=== PATIENT | female | born 1955 | race Caucasian/White ===

== ENCOUNTER → 2018-01-05 12:06 | Outpatient (CLI) | payer OTHER, SELFPAY ==
--- NOTE | 2018-01-05 | DI.MG.S_ITS ---
BILATERAL DIGITAL SCREENING MAMMOGRAM 3D/2D WITH CAD: 01/05/2018 CLINICAL: Routine screening. Comparison is made to exams dated: 09/01/2007 [facility], 07/19/2013 mammogram, and 04/06/2007 mammogram - [facility]. The tissue of both breasts is heterogeneously dense. This may lower the sensitivity of mammography. Current study was also evaluated with a Computer Aided Detection (CAD) system. No significant masses, calcifications, or other findings are seen in either breast. There has been no significant interval change. IMPRESSION: NEGATIVE There is no mammographic evidence of malignancy. A 1 year screening mammogram is recommended. This exam was interpreted at Station ID: [id number]. NOTE: For mammograms, a report in lay terms will be sent to the patient. Approximately 15% of breast malignancies will not be visualized mammographically. In the management of a palpable breast mass, a negative mammogram must not discourage biopsy of a clinically suspicious lesion. Electronically Signed By: Doni hansen/christo:01/05/2018 13:33:55 letter sent: Normal Exam ACR BI-RADS Category 1: Negative [id number]
== END ==
PROVIDERS: Family Provider Family Medicine; PCP Family Medicine; Visit Provider Family Medicine
DX: Z12.31 Encounter for screening mammogram for malignant neoplasm of breast (principal)
CPT/HCPCS: 77063; 77067

== ENCOUNTER 2018-08-29 10:33 | Day surgery (SDC) | payer OTHER, SELFPAY ==
[2018-08-22 13:19] VITALS: BMI 29.5
[2018-08-29] VITALS (9 sets, daily range): BP systolic 124–158; BP diastolic 60–83; PULSE 66–89; RESP 12–25; TEMP 36.2–36.4; O2SAT 94–100; BMI 30.5
[2018-08-29] MEDS: LACTATED RINGERS 1,000 ML 42 ML IV ×2 (11:15→14:12)
--- NOTE | 2018-08-29 12:11 | PM.PREOP ---
Pre-operative Note Interval Note History & Physical reviewed/Exam performed by Physician: Yes Changes to H&P: No
[2018-08-29] MEDS: MIDAZOLAM 2 MG/2 ML VIAL IV (12:47)
[2018-08-29] MEDS: fentaNYL 100 MCG/2 ML INJ 50 MCG IV ×2 (12:47→12:52)
[2018-08-29] MEDS: CEFAZOLIN 2 GM/100 ML FROZ.PIGGY IV (13:07)
--- NOTE | 2018-08-29 13:12 | SUR.PREOP ---
Block start time [1247] . Monitoring initiated and maintained throughout procedure. Oxygen and medications given per anesthesiologist instructions. Patient remained stable throughout procedure, no adverse reactions noted. Block end time [1300]. PT TALKING TO AT BEDSIDE AND HEALTHCARE STAFF DURING PROCEDURE. PT TAKEN DIRECTLY INTO THE OR AFTER COMPLETION OF THE BLOCK IN STABLE CONDITION.
--- NOTE | 2018-08-29 13:51 | SUR.OPER ---
Lateral on padded OR bed with burris bag positioner, head on pillow, gel axillary roll in place, bottom leg bent with gel pad under knee to foot, upper leg straight and supported with pillows. Operative arm secured in shoulder positioning suspension device. non-operative arm secured on padded arm board. Safety belt at hip, tape over blanket securing lower legs.
[2018-08-29] MEDS: SODIUM CHLORIDE IRRIG SOLUTION 3,000 ML, EPINEPHrine 1 MG IRR (14:03)
[2018-08-29] MEDS: BUPIVACAINE 0.5% W/ EPI (PF) VIAL 30 ML INJ (14:24)
--- NOTE | 2018-08-29 14:38 | P.OP_ITS ---
Operative Date/Time/Diagnoses Date of procedure: 08/29/18 Time of procedure: 14:20 Pre-op diagnosis: Left shoulder rotator cuff tear Post-op diagnosis: same Procedure & Clinicians Procedure: 1. Left shoulder arthroscopic rotator cuff repair 2. Left shoulder arthroscopic subacromial decompression Same procedure as scheduled: Yes Indications: The patient is a 62-year-old woman who has had significant left shoulder pain that has not responded to attempts at nonoperative management. MRI has revealed a full-thickness rotator cuff tear and she has agreed to surgery after discussion of the risks benefits and alternatives. Risks discussed included but were not limited to: Failure to improve, stiffness, infection, nerve damage, deep venous thrombosis, pulmonary embolism, stroke, myocardial infarction, permanent paralysis and . Surgeon: Raymond Barcenas [employer]: Briseida Mccray Click Yes if Unassisted: No Anesthesia Type: General, Peripheral nerve block and Local Operative Notes Findings: 1. Normal glenohumeral cartilage 2. Minimal degenerative fraying of the glenoid labrum 3. Normal glenohumeral ligaments 4. Normal subscapularis 5. Normal biceps with no SLAP lesion 6. Full-thickness minimally retracted 1 cm tear of the supraspinatus tendon just posterior to the biceps groove 7. Intact infraspinatus 8. Normal axillary pouch 9. Bursal rotator cuff notable for the full-thickness rotator cuff tear described above 10. Type 2 acromion with impingement lesion 11. Acromioclavicular joint not visualized due to lack of preoperative symptoms 12. Exam under anesthesia notable for no evidence for significant loss of motion or pathologic laxity. Closure Type: primary Specimen(s): none sent Implants & Drains: One Mitek Healix Advance BR 5.5 mm triple threaded anchor Applied: implant(s) Estimated Blood Loss (mL): 10 Blood products transfused: none Procedure in detail: Patient was seen in the preoperative area where she identified her left shoulder as the operative site and this was marked with my initials. She received appropriate antibiotics with a 1st generation cephalosporin and underwent an interscalene block. She was then taken to the operating room and placed on the operating room table in a supine position where she underwent the induction of a general anesthetic. A time clock mechanic-out was performed. Following the onset a satisfactory general anesthesia her shoulder was examined. She was then repositioned in the right lateral decubitus position with an axillary roll and padding for all pressure points. She was stabilized in this position using the burris bag. The left arm was prepared from the fingertips to the base the neck with ChloraPrep and draped through sterile drapes. The arm was placed in 10 lb of balanced skin suspension. Subcutaneous landmarks were outlined on the skin with a marking pen and portal sites selected. The posterior portal was created for the arthroscope and diagnostic arthroscopy in the glenohumeral joint proceeded with the result given above. The arthroscope was then withdrawn and placed in the subacromial bursa through the posterior portal. A lateral portal and an anterior portal were created for instrumentation. The rotator cuff tear was identified and nonviable tissue removed with shaver. The greater tuberosity was prepared to bleeding bone with the bur. The type 2 acromion was converted to a type 1 acromion using the cutting block technique. An accessory superolateral portal was created for anchor placement and a single anchor was placed in the greater tuberosity. The sutures from this anchor were then placed across the rotator cuff tear in simple suture fashion and tied to complete the repair. The integrity of the repair was verified from both the posterior portal in the lateral portal. At this point all arthroscopic equipment was removed. The wounds were closed with 4 0 Monocryl and Steri-Strips. The subcutaneous tissues and the subacromial space were each injected with 10 mL 0.5% Marcaine for postoperative pain control. Dressings sterile 4x4s, an ABD and an adhesive dressing were applied. The patient's arm was placed in the sling and she was transported to the recovery room in good condition having tolerated the procedure well. Complications: none Condition: stable Disposition: PACU Plan for aftercare: The patient will be maintained on a standard small size rotator cuff tear protocol with 6 weeks of passive range of motion while wearing a sling. She will then be advanced with physical therapy. She will be discharged this afternoon.
== END 2018-08-29 16:25 | disposition home or self-care (01) ==
PROVIDERS: Family Provider Family Medicine; PCP Family Medicine; Visit Provider Orthopaedic Surgery
PROC: (CPT 29827; principal; 2018-08-29 12:45)
DX: M75.122 Complete rotator cuff tear or rupture of left shoulder, not specified as traumatic (principal); G89.18 Other acute postprocedural pain; M25.812 Other specified joint disorders, left shoulder; I10 Essential (primary) hypertension; E78.5 Hyperlipidemia, unspecified; M19.90 Unspecified osteoarthritis, unspecified site; Z87.891 Personal history of nicotine dependence
CPT/HCPCS: 29827; 29826; 64415; J0171; J0690; J1100; J2250; J2405; J2704; J3010

== ENCOUNTER → 2021-06-10 11:56 | Outpatient (CLI) | payer OTHER, SELFPAY | PROVIDERS: PCP Physician Assistant; Visit Provider Physician Assistant Medical | DX: N20.0 Calculus of kidney (principal) | CPT/HCPCS: 87086 ==

== ENCOUNTER → 2021-12-17 10:19 | Outpatient (CLI) | payer OTHER, SELFPAY | PROVIDERS: Family Provider Family Medicine; PCP Family Medicine; Visit Provider Physician Assistant Medical | DX: R31.9 Hematuria, unspecified (principal) | CPT/HCPCS: 87086 ==

== ENCOUNTER → 2021-12-24 11:28 | Outpatient (CLI) | payer OTHER, SELFPAY ==
[2021-12-24 18:35] LABS: Add Manual Diff / Slide Review NO; Basophils Absolute Auto 100 /uL (0-100); Basophils Percent Auto 0.7 % (0-2); Eosinophils Absolute Auto 200 /uL (0-450); Eosinophils Percent Auto 1.6 % (2-4); Hematocrit 39.1 % (36-46); Lymphocytes Absolute Auto 3100 /uL (1100-4500); Lymphocytes Percent Auto 32.9 % (25-40); Mean Corpuscular HGB Conc 35.7 % (30-36); Mean Corpuscular Hemoglobin 32.8 PG (26-34); Mean Corpuscular Volume 92.1 fL (80-100); Monocytes Absolute Auto 700 /uL (0-900); Monocytes Percent Auto 7.7 % (3-14); Neutrophils Absolute Auto 5400 /uL (1500-7000); Neutrophils Percent Auto 57.1 % (50-75); Platelet Count 264 X10^3/uL (150-400); Red Blood Cell Count 4.25 X10^6/uL (4.0-5.2); Red Cell Distribution Width 13.4 % (11.6-14.8); White Blood Cell Count 9.4 X10^3/uL (4.5-11.0)
[2021-12-24 18:43] LABS: Alanine Aminotransferase 14 IU/L (<35); Albumin 4.1 g/dL (3.5-5.0); Albumin Globulin Ratio 1.4 (1.0-2.8); Alkaline Phosphatase 61 U/L (38-126); Aspartate Aminotransferase 41 IU/L (14-36); BUN Creatinine Ratio 17.1 (6-22); Bilirubin Total 0.2 mg/dL (0.2-1.3); Blood Urea Nitrogen 12 mg/dL (7-17); Calcium 8.7 mg/dL (8.4-10.2); Carbon Dioxide 30 mmol/L (22-32); Chloride 101 mmol/L (98-107); Cholesterol 268 mg/dL (140-199); Estimated Glomerular Filt Rate > 60 mL/min (>60); Globulin 2.9 g/dL (1.7-4.1); Glucose 163 mg/dL (80-110); HDL Cholesterol 43 mg/dL (40-60); HEMOLYSIS 18 (0-50); Potassium 3.9 mmol/L (3.4-5.1); Sodium 136 mmol/L (137-145); Triglycerides 434 mg/dL (35-150)
[2021-12-25 04:59] LABS: Hemoglobin A1C% w Est Avg Glu 6.4 % (4.0-6.0)
== END ==
PROVIDERS: Family Provider Family Medicine; PCP Family Medicine; Visit Provider Physician Assistant Medical
DX: B35.3 Tinea pedis (principal); E78.00 Pure hypercholesterolemia, unspecified; E78.5 Hyperlipidemia, unspecified; G47.01 Insomnia due to medical condition; I10 Essential (primary) hypertension; K59.03 Drug induced constipation; N20.0 Calculus of kidney; R73.9 Hyperglycemia, unspecified; F41.9 Anxiety disorder, unspecified; G89.4 Chronic pain syndrome; M79.89 Other specified soft tissue disorders; R23.8 Other skin changes; R55 Syncope and collapse; Z79.891 Long term (current) use of opiate analgesic
CPT/HCPCS: 80053; 80061; 83036; 85025

== ENCOUNTER → 2022-10-27 15:14 | Outpatient (CLI) | payer OTHER, SELFPAY | PROVIDERS: Family Provider Family Medicine; PCP Physician Assistant Medical; Visit Provider Physician Assistant Medical | DX: N39.0 Urinary tract infection, site not specified (principal) | CPT/HCPCS: 87086 ==

== ENCOUNTER → 2023-11-16 14:09 | Outpatient (CLI) | payer OTHER, SELFPAY | PROVIDERS: Family Provider Family Medicine; PCP Physician Assistant Medical; Visit Provider Physician Assistant Medical | DX: M54.50 Low back pain, unspecified (principal) | CPT/HCPCS: 87086 ==

== ENCOUNTER → 2024-09-12 12:44 | Outpatient (CLI) | payer BC, SELFPAY ==
[2024-09-12 18:47] LABS: Add Manual Diff / Slide Review NO; Basophils Absolute Auto 100 /uL (0-100); Basophils Percent Auto 1.2 % (0-2); Eosinophils Absolute Auto 200 /uL (0-450); Eosinophils Percent Auto 2.1 % (2-4); Hematocrit 41.3 % (36-46); Lymphocytes Absolute Auto 3600 /uL (1100-4500); Mean Corpuscular HGB Conc 33.9 % (30-36); Mean Corpuscular Hemoglobin 31.8 PG (26-34); Mean Corpuscular Volume 93.7 fL (80-100); Monocytes Absolute Auto 500 /uL (0-900); Monocytes Percent Auto 5.4 % (3-14); Neutrophils Absolute Auto 4800 /uL (1500-7000); Neutrophils Percent Auto 52.3 % (50-75); Platelet Count 314 X10^3/uL (150-400); Red Blood Cell Count 4.41 X10^6/uL (4.0-5.2); Red Cell Distribution Width 13.4 % (11.6-14.8); White Blood Cell Count 9.2 X10^3/uL (4.5-11.0)
[2024-09-12 18:53] LABS: Alanine Aminotransferase 13 IU/L (<35); Albumin 4.4 g/dL (3.5-5.0); Albumin Globulin Ratio 1.7 (1.0-2.8); Alkaline Phosphatase 57 U/L (38-126); Aspartate Aminotransferase 21 IU/L (14-36); Bilirubin Total 0.3 mg/dL (0.2-1.3); Blood Urea Nitrogen 12 mg/dL (7-17); Calcium 9.3 mg/dL (8.4-10.2); Carbon Dioxide 26 mmol/L (22-32); Chloride 103 mmol/L (98-107); Estimated Glomerular Filt Rate > 60 mL/min (>60); Globulin 2.6 g/dL (1.7-4.1); Glucose 154 mg/dL (80-110); HEMOLYSIS 17 (0-50); Sodium 136 mmol/L (137-145)
[2024-09-12 19:11] LABS: Hemoglobin A1C% w Est Avg Glu 6.7 % (4.0-6.0)
[2024-09-12 19:22] LABS: TSH w/ Reflex to FT4 3.52 uIU/mL (0.47-4.68)
== END ==
PROVIDERS: Family Provider Family Medicine; PCP Physician Assistant Medical; Visit Provider Physician Assistant Medical
DX: N39.0 Urinary tract infection, site not specified (principal); E08.8 Diabetes mellitus due to underlying condition with unspecified complications; Z13.29 Encounter for screening for other suspected endocrine disorder
CPT/HCPCS: 80053; 83036; 84443; 85025; 87086